=== PATIENT | male | born 2005 | race African-American/Black ===

== ENCOUNTER 2024-10-31 13:57 | Emergency (ER) | payer MEDICAID ==
[~2024-10-31] VITALS: Ht 172.7 cm; Wt 75.0 kg
[2024-10-31] MEDS: HALOPERIDOL LACTATE 5MG/ML VIAL IM ONE ×2 (15:30→16:52)
[2024-10-31] MEDS: LORAZEPAM 2MG/ML UD SYRINGE IM NR (15:30)
[2024-10-31] MEDS: DIPHENHYDRAMINE 50MG/ML VIAL IM ONE ×2 (15:31→16:52)
[2024-10-31 16:52] VITALS: O2SAT 100
[2024-10-31] MEDS: MIDAZOLAM HCL 2 MG/2 ML VIAL IM ONE (16:52)
[2024-10-31 18:01] LABS: *AMPHETAMINES SCREEN URINE NEGATIVE (NEGATIVE); *BARBITURATES SCREEN URINE NEGATIVE (NEGATIVE); *BENZODIAZEPINES SCREEN URINE NEGATIVE (NEGATIVE); *COCAINE SCREEN URINE NEGATIVE (NEGATIVE); CANNABINOID URINE SCREEN PRESUMPTIVE POSITIVE (NEGATIVE); ECSTASY MDMA SCREEN URINE NEGATIVE (NEGATIVE); METHADONE URINE SCREEN NEGATIVE (NEGATIVE); OPIATES URINE SCREEN NEGATIVE (NEGATIVE); PHENCYCLIDINE URINE SCREEN NEGATIVE (NEGATIVE)
[2024-10-31] MEDS: KETAMINE HCL 50 MG/ML 10ML IM ONE (18:58)
[2024-10-31 19:17] LABS: BASOPHILS % 0.8 % (0.0-2.0); EOSINOPHILS % 0.0 % (0.0-5.0); HEMATOCRIT. 43.1 % (42.0-52.0); HEMOGLOBIN. 14.9 g/dL (14.0-18.0); LYMPHOCYTES % 23.7 % (20.0-50.0); MEAN PLATELET VOLUME 10.3 fl (7.4-10.4); MONOCYTES % 8.6 % (2.0-8.0); NEUTROPHILS % 66.9 % (40.0-76.0); PLATELET 214 x1000/uL (130-400); RED BLOOD CELL COUNT 4.80 mill/uL (4.7-6.1); RED CELL DISTRIBUTION WIDTH 12.5 % (11.6-14.6)
[2024-10-31 19:29] LABS: CREATININE 1.0 mg/dL (0.6-1.3); UREA NITROGEN BLOOD 8 mg/dL (9-23)
[2024-10-31 19:30] LABS: ETHANOL BLOOD < 10 mg/dL (<10)
[2024-10-31 19:31] LABS: ASPARTATE AMINOTRANSFERASE 29 IU/L (<34); BILIRUBIN DIRECT 0.4 mg/dL (<=3.0)
[2024-10-31 19:32] LABS: BILIRUBIN TOTAL 0.9 mg/dL (0.1-1.0); PROTEIN TOTAL 7.4 g/dL (6.0-8.3)
[2024-10-31] MEDS: OLANZAPINE 10 MG/VIAL IM ONE (21:05)
[2024-11-01] MEDS: ZIPRASIDONE MESYLATE 20MG/VIAL IM ONE ×2 (00:41→06:33)
[2024-11-01] MEDS: LORAZEPAM 2MG/ML UD SYRINGE IM SCH (06:33)
[2024-11-01] MEDS ORDERED: HYDROXYZINE 25MG TABLET PO PRN (09:30)
[2024-11-01 18:55] VITALS: BP 152/86; PULSE 87; RESP 16; TEMP 36.8; O2SAT 100
[2024-11-01] MEDS ORDERED: OLANZAPINE 5MG TABLET ODT PO SCH (21:00)
[2024-11-01] MEDS ORDERED: DIVALPROEX SODIUM 500MG DR TABLET PO SCH (21:00)
== END 2024-11-01 18:48 ==
LOC: ER 13:57
DX: R45.1 Restlessness and agitation (principal); F31.9 Bipolar disorder, unspecified; Z79.899 Other long term (current) drug therapy; Z20.822 Contact with and (suspected) exposure to COVID-19
CPT/HCPCS: 80076; 80305; 80048; 80307; 80329; 80320; 83735; 85025; 36415; 70450; 96372 ×2; 99285; 87426; J3490 ×2; J1200; J1630; J2060 ×2; J2250; J3486; G0480